=== PATIENT | male | born 2000 | race Two or more races ===

== ENCOUNTER 2022-06-02 01:55 | Emergency (ER) | payer OTHER ==
[~2022-06-02] VITALS: Ht 170.2 cm; Wt 70.0 kg
[2022-06-02 02:31] VITALS: BP 133/81
== END 2022-06-02 05:28 | disposition left against medical advice (07) ==
LOC: ER 01:55
DX: R21 Rash and other nonspecific skin eruption (principal); Z53.21 Procedure and treatment not carried out due to patient leaving prior to being seen by health care provider